=== PATIENT | female | born 1950 | race Caucasian/White ===

== ENCOUNTER 2016-09-18 14:03 | Outpatient (CLI) | payer OTHER, BC | END 2016-09-18 14:04 | disposition home or self-care (01) | DX: Z12.31 Encounter for screening mammogram for malignant neoplasm of breast (principal) ==

== ENCOUNTER 2016-10-22 13:57 | Outpatient (CLI) | payer OTHER, BC ==
--- NOTE | 2016-10-24 14:06 | DEXA Report ---
DEXA SCAN: 10/22/2016 HISTORY: @@ TECHNIQUE: Dual energy x-ray absorptiometry (DXA) was performed on a edulio system. Regions measured are the AP spine, femoral neck, and, if needed, forearm. COMPARISON: None. In accordance with the International Society for Clinical Densitometry (ISCD) guidelines, data from previous exams may be reanalyzed using current recommendations and techniques. This is done to allow a more accurate basis for comparison with the current study. FINDINGS: The data for the lumbar spine is as follows: REGION BMD (g/cm/cm) T-SCORE Z-SCORE L1 0.631 -4.2 -2.0 L2 0.708 -4.1 -2.0 L3 0.760 -3.7 -1.5 L4 0.731 -3.9 -1.8 TOTAL 0.702 -3.9 -1.8 NOTE: All evaluable vertebrae are used for classification. The data for the hip is as follows: REGION BMD (g/cm/cm) T-SCORE Z-SCORE Neck 0.580 -3.3 -1.4 TOTAL 0.582 -3.4 -1.7 NOTE: The femoral neck or total proximal femur, whichever is lowest, is used for classification. * Denotes significant change at the 95% confidence level. Denotes dissimilar scan types or analysis methods. IMPRESSION: THE WHO CLASSIFICATION BASED ON THE INTERNATIONAL REFERENCE STANDARD IS SIGNIFICANT OSTEOPOROSIS. THE FRACTURE RISK IS SIGNIFICANTLY INCREASED. RECOMMENDATION: Patients with diagnosis of osteoporosis or osteopenia should have regular bone mineral density assessment. For those eligible for Medicare, routine testing is allowed once every 2 years. Testing frequency can be increased for patients who have rapidly progressing disease or for those who are receiving medical therapy to restore bone mass. COMMENT: World Health Organization (WHO) definitions for osteoporosis and osteopenia: NORMAL BMD: T-score at -1.0 or higher, fracture risk is low. OSTEOPENIA BMD: T-score between -1.0 and -2.5, fracture risk is increased. OSTEOPOROSIS BMD: T-score at -2.5 or lower, fracture risk high. National Osteoporosis Foundation recommends: 1. Obtain adequate dietary calcium (at least 1200 mg per day) and vitamin D (400 -800 international units per day). 2. Participate, as appropriate, in regular weightbearing and muscle- strengthening exercise. 3. Avoid tobacco use and reduce alcohol and caffeine intake. 4. For more detailed information see the website at www.NOF.org. MTDD
== END 2016-10-22 13:58 | disposition home or self-care (01) ==
LOC: DI 13:57
PROVIDERS: ATTEND Family Medicine
DX: M81.0 Age-related osteoporosis without current pathological fracture (principal)
CPT/HCPCS: 77080

== ENCOUNTER 2017-07-28 13:35 | Emergency (ER) | payer BC ==
--- NOTE | 2017-07-28 16:39 | ED Physician Documentation ---
PD HPI HEADACHE - Stated complaint Stated Complaint: SHARP HEAD PX - Chief complaint Chief Complaint: General - History obtained from History obtained from: Patient PD PAST MEDICAL HISTORY - Present Medications Home Medications: Ambulatory Orders Medication Instructions Recorded Confirmed Atorvastatin [Lipitor] 10 mg ORAL DAILY 07/28/17 07/28/17 Lisinopril 10 mg PO DAILY 07/28/17 07/28/17 - Allergies Allergies/Adverse Reactions: Allergies Allergy/AdvReac Type Severity Reaction Status Date / Time Sulfa (Sulfonamide Allergy Emesis Verified 07/28/17 13:43 Antibiotics) Results - Vitals Vitals: Vital Signs - 24 hr 07/28/17 13:40 Temperature 36.7 C Heart Rate 59 L Respiratory 18 Rate Blood Pressure 150/88 H O2 Saturation 100 Oxygen O2 Source Room air
--- NOTE | 2017-07-28 16:57 | ED Physician Documentation ---
History of Present Illness - Stated complaint Stated Complaint: SHARP HEAD PX - Chief complaint Chief Complaint: General - History obtained from History obtained from: Patient, Family - History of Present Illness Timing: How many days ago (4) - Additonal information Additional information: 66-year-old female otherwise healthy Has developed acute lancinating pain in her scalp about 4 days ago. She has had frequent episodes of brief sharp pain in the left side of the scalp only and she had a lot of this last night repeated episodes and today she has had 4 episodes. She feels this is better today than it was last night. She does not have a rash in her scalp and she denies any significant current stress. Review of Systems Constitutional: denies: Fever Eyes: denies: Decreased vision Ears: denies: Ear pain Nose: denies: Rhinorrhea / runny nose, Congestion Throat: denies: Dental pain / toothache, Oral lesions / sores, Sore throat Cardiac: denies: Chest pain / pressure Respiratory: denies: Dyspnea, Cough GI: denies: Abdominal Pain, Nausea, Vomiting : denies: Dysuria, Frequency Skin: denies: Rash Musculoskeletal: denies: Neck pain, Back pain, Extremity pain Neurologic: reports: Headache (Sharp brief pains). denies: Generalized weakness , Focal weakness, Numbness, Head injury, LOC PD PAST MEDICAL HISTORY - Present Medications Home Medications: Ambulatory Orders Medication Instructions Recorded Confirmed Atorvastatin [Lipitor] 10 mg ORAL DAILY 07/28/17 07/28/17 Lisinopril 10 mg PO DAILY 07/28/17 07/28/17 - Allergies Allergies/Adverse Reactions: Allergies Allergy/AdvReac Type Severity Reaction Status Date / Time Sulfa (Sulfonamide Allergy Emesis Verified 07/28/17 13:43 Antibiotics) PD ED PE NORMAL - Vitals Vital signs reviewed: Yes (Diastolic hypertension) - General General: Alert and oriented X 3, No acute distress, Well developed/nourished - HEENT HEENT: Atraumatic, PERRL, EOMI, Other (There is fine erythema to the scalp on the left side of the parietal region where the patient has been having her symptoms. There are no blisters or open sores.) - Neck Neck: Supple, no meningeal sign, No bony TTP - Respiratory Respiratory: No respiratory distress - Derm Derm: Normal color, Warm and dry, No rash - Extremities Extremities: No deformity, No edema - Neuro Neuro: Alert and oriented X 3, poultry pinner 2-12 intact, No motor deficit, No sensory deficit, Normal speech Eye Opening: Spontaneous Motor: Obeys Commands Verbal: Oriented GCS Score: 15 - Psych Psych: Normal mood, Normal affect Results - Vitals Vitals: Vital Signs - 24 hr 07/28/17 13:40 Temperature 36.7 C Heart Rate 59 L Respiratory 18 Rate Blood Pressure 150/88 H O2 Saturation 100 Oxygen O2 Source Room air PD MEDICAL DECISION MAKING - ED course Complexity details: considered differential, d/w patient, d/w family ED course: 66-year-old female with sharp lancinating pains to her scalp likely has zoster and this does not look like a bad case. She has had a few episodes today these are all brief and are less than what she had last night. I suspect her shingles are resolving and we discussed potential treatment and she does not feel that this will be necessary. I have agreed with the patient and she will be treated conservatively. I considered other etiologies such as subarachnoid hemorrhage or ruptured aneurysm as unlikely given the patient's constellation of symptoms and benign examination. Her symptoms are entirely consistent with shingles and not other etiology. Departure - Departure Disposition: 01 Home, Self Care Clinical Impression: Shingles Qualifiers: Herpes zoster complications: without complications Qualified Code(s): B02.9 - Zoster without complications Condition: Stable Instructions: ED Shingles Follow-Up: Natacha Johnson MD [Primary Care Provider] -
[2017-07-28 17:26] VITALS: BP 144/87
== END 2017-07-28 17:26 | disposition home or self-care (01) ==
LOC: ED 13:35
DX: B02.9 Zoster without complications (principal)
CPT/HCPCS: 99283

== ENCOUNTER 2018-10-05 08:00 | Outpatient (CLI) | payer MEDICARE, BC ==
[2018-10-05 13:29] LABS: ALBUMIN 3.9 g/dL (3.2-5.5); ALBUMIN/GLOBULIN RATIO 1.3 (1.0-2.2); ALKALINE PHOSPHATASE 47 IU/L (42-121); ALT ALANINE AMINOTRANSFERASE 18 IU/L (10-60); AST ASPARTATE AMINOTRANSFERASE 24 IU/L (10-42); BILIRUBIN,TOTAL 0.4 mg/dL (0.2-1.0); BUN - BLOOD UREA NITROGEN 14 mg/dL (6-20); CALCIUM 9.4 mg/dL (8.5-10.3); CARBON DIOXIDE - CO2 27 mmol/L (21-32); CHLORIDE 104 mmol/L (101-111); CHOL/HDL RATIO 2.2 (<4.4); CHOLESTEROL 184 mg/dL; CREATININE 0.8 mg/dL (0.4-1.0); GFR - MDRD 71 (>89); GLUCOSE 94 mg/dL (70-100); HDL CHOLESTEROL 85 mg/dL; LDL CHOLESTEROL,CALCULATED 84 mg/dL; SODIUM 141 mmol/L (135-145); VLDL CHOLESTEROL 15 mg/dL
[2018-10-05 13:31] LABS: BASOPHILS % (AUTO) 0.8 %; EOSINOPHILS # (AUTO) 0.1 10^3/uL (0.0-0.7); EOSINOPHILS % (AUTO) 1.6 %; HGB - HEMOGLOBIN 12.9 g/dL (12.0-16.0); LYMPHOCYTES # (AUTO) 1.4 10^3/uL (1.5-3.5); LYMPHOCYTES % (AUTO) 33.1 %; MEAN CORPUSCULAR HEMOGLOBIN 28.5 pg (27.0-31.0); MEAN CORPUSCULAR HGB CONC 33.2 g/dL (32.0-36.0); MEAN CORPUSCULAR VOLUME 85.8 fL (81.0-99.0); MEAN PLATELET VOLUME 9.2 fL (7.9-10.8); MONOCYTES # (AUTO) 0.4 10^3/uL (0.0-1.0); NEUTROPHILS # (AUTO) 2.4 10^3/uL (1.5-6.6); NEUTROPHILS % (AUTO) 55.5 %; PLT - PLATELET COUNT 204 10^3/uL (130-450); RED BLOOD COUNT 4.54 10^6/uL (4.20-5.40); RED CELL DISTRIBUTION WIDTH 12.8 % (12.0-15.0); WHITE BLOOD COUNT 4.3 x10^3/uL (4.8-10.8)
== END 2018-10-05 23:59 | disposition home or self-care (01) ==
LOC: LAB.WCP 08:00
PROVIDERS: ATTEND Family Medicine
DX: E78.5 Hyperlipidemia, unspecified (principal); I10 Essential (primary) hypertension
CPT/HCPCS: 36415; 80053; 80061; 83721; 85025

== ENCOUNTER 2018-11-16 12:02 | Outpatient (CLI) | payer MEDICARE, BC ==
--- NOTE | 2018-11-17 08:51 | Mammography Report ---
Reason: SCREENING MAMMO Procedure Date: 11/16/2018 Accession Number: [id number] / [id number] Procedure: SARAH - Screening Mammo w/Ryan CPT Code: FULL RESULT: EXAM: Screening Mammo w/Ryan DATE: 11/16/2018 12:35 PM CLINICAL HISTORY: Screening encounter. History of late childbearing. TECHNIQUE: (B) - Bilateral CC and MLO views were obtained. A right laterally exaggerated CC views obtained. COMPARISON: 09/18/2016 through 03/16/2011. PARENCHYMAL PATTERN: (D) - The breast(s) demonstrate(s) heterogeneously dense fibroglandular parenchyma. FINDINGS: There are coarse typically benign calcifications. There are no suspicious masses, calcifications, or areas of distortion. IMPRESSION: Benign findings. BI-RADS category 2. RECOMMENDATION: (ANNUAL) - Recommend routine annual screening mammography. BI-RADS CATEGORY: (2) - Benign Findings. STANDARD QUALIFYING STATEMENTS: 1. This examination was not reviewed with the aid of Computer-Aided Detection (CAD). 2. A negative or benign imaging report should not preclude biopsy if clinically suspicious findings are present. 3. Dense breasts may obscure an underlying neoplasm. 4. This examination was reviewed with the aid of 3D breast imaging (tomosynthesis).
== END 2018-11-16 12:03 | disposition home or self-care (01) ==
LOC: DI 12:02
DX: Z12.31 Encounter for screening mammogram for malignant neoplasm of breast (principal)
CPT/HCPCS: 77063; 77067

== ENCOUNTER 2019-01-03 22:50 | Emergency (ER) | payer MEDICARE, BC ==
[2019-01-03] MEDS ORDERED: IBUPROFEN 800 MG TABLET PO STA (23:18)
--- NOTE | 2019-01-03 23:24 | XRAY Report ---
Reason: injury/fall Procedure Date: 01/03/2019 Accession Number: [id number] / [id number] Procedure: XR - Ankle 3 View LT CPT Code: FULL RESULT: EXAM: LEFT ANKLE RADIOGRAPHY EXAM DATE: 01/03/2019 11:18 PM. CLINICAL HISTORY: Injury/fall. COMPARISON: None. TECHNIQUE: 3 views. FINDINGS: Bones: Normal. No fractures or bone lesions. Joints: Normal. No effusion. No subluxations. The ankle mortise is normally aligned. Soft Tissues: Normal. No soft tissue swelling. IMPRESSION: Normal ankle radiography. RADIA
--- NOTE | 2019-01-03 23:47 | ED Physician Documentation ---
PD HPI LOWER EXT INJURY - Stated complaint Stated Complaint: L ANKLE PX - Chief complaint Chief Complaint: Trauma Ext - History obtained from History obtained from: Patient - History of Present Illness PD HPI LOW EXT INJURY LOCATION: Left, Ankle Type of injury: Twist Where injury occurred: Home Timing - onset: How many hours ago (7) Worsened by: Other (Weightbearing) Associated symptoms: Swelling Similar symptoms before: Has not had sx before - Additional information Additional information: The patient is a 68-year-old female who twisted her left ankle when stepping down into the garage about 7 hours prior to arrival. She presents now with pain in her left ankle, stating that she is unable to bear weight. She denies any other injuries. She denies history of similar injury in the past. Review of Systems Constitutional: denies: Fever Respiratory: denies: Dyspnea Skin: denies: Lesions Musculoskeletal: reports: Joint pain (Left ankle.), Joint swelling (Left ankle.). denies: Back pain Neurologic: denies: Focal weakness, Numbness PD PAST MEDICAL HISTORY - Past Medical History Past Medical History: Yes Cardiovascular: Hypertension, High cholesterol Musculoskeletal: Osteoporosis - Past Surgical History Past Surgical History: Yes General: Appendectomy - Present Medications Home Medications: Ambulatory Orders Medication Instructions Recorded Confirmed Atorvastatin [Lipitor] 10 mg ORAL DAILY 07/28/17 01/03/19 Lisinopril 10 mg PO DAILY 07/28/17 01/03/19 - Allergies Allergies/Adverse Reactions: Allergies Allergy/AdvReac Type Severity Reaction Status Date / Time Sulfa (Sulfonamide Allergy Emesis Verified 01/03/19 22:56 Antibiotics) - Social History Does the pt smoke?: No Smoking Status: Never smoker Does the pt drink ETOH?: No Does the pt have substance abuse?: No - Immunizations Immunizations are current?: Yes - POLST Patient has POLST: No PD ED PE NORMAL - Vitals Vital signs reviewed: Yes (Systolic hypertension initially.) - General General: Alert and oriented X 3, Well developed/nourished - HEENT HEENT: Atraumatic - Respiratory Respiratory: No respiratory distress - Derm Derm: No rash - Extremities Extremities: No calf tenderness / cord, Other (There is mild swelling, with associated tenderness to palpation at the anterior aspect of the lateral malleolus of the left ankle. There is no tenderness to palpation at the posterior aspect of the lateral malleolus, the medial mall or the proximal fibula. There is mild tenderness over the fifth metatarsal base.) - Neuro Neuro: Alert and oriented X 3, No motor deficit, No sensory deficit Results - Vitals Vitals: Vital Signs - 24 hr 01/03/19 22:52 Temperature 37.2 C Heart Rate 74 Respiratory 14 Rate Blood Pressure 165/11 H O2 Saturation 100 Oxygen O2 Source Room air - Rads (name of study) Left ankle Radiology: Prelim report reviewed, EMP read contemporaneously, See rad report (Normal ankle radiography.) PD MEDICAL DECISION MAKING - ED course Complexity details: reviewed results, re-evaluated patient, considered differential, d/w patient, d/w family ED course: The patient's presentation is most consistent with a left ankle sprain. X-ray of the left ankle reveals no evidence of bony abnormality. Treatment in the emergency department included administration of ibuprofen 800 mg orally. An ankle air splint was applied and crutches were dispensed. I discussed with her and her the expected course of injury, symptomatic treatment and outpatient follow-up, as well as potentially worrisome signs or symptoms that should prompt reevaluation in the emergency department. Departure - Departure Disposition: 01 Home, Self Care Clinical Impression: Left ankle sprain Qualifiers: Encounter type: initial encounter Involved ligament of ankle: anterior talofibular ligament Qualified Code(s): S93.492A - Sprain of other ligament of left ankle, initial encounter Condition: Stable Instructions: ED Sprain Ankle W X Ray Follow-Up: Natacha Johnson MD [Provider Admit Priv/Credential] - Comments: Keep your left leg elevated as much of the time as possible. Apply ice pack intermittently for the next 3 or 4 days. You can use ibuprofen, up to 800 mg 3 times daily if needed for pain or discomfort. Use the air splint as long as it is helpful. Let pain be your guide to activity level. Follow-up with your primary physician within 2 weeks. Call to schedule an appointment. Return to the emergency department if you develop markedly increasing pain, or otherwise worsening symptoms.
[2019-01-04 00:08] VITALS: BP 108/92
== END 2019-01-04 | disposition home or self-care (01) ==
LOC: ED 22:50
DX: S93.492A Sprain of other ligament of left ankle, initial encounter (principal); X50.1XXA Overexertion from prolonged static or awkward postures, initial encounter; Y92.015 Private garage of single-family (private) house as the place of occurrence of the external cause; I10 Essential (primary) hypertension
CPT/HCPCS: 73610; 99282; 99283; A9270

== ENCOUNTER 2019-03-04 10:37 | Outpatient (CLI) | payer MEDICARE, BC | END 2019-03-04 10:38 | disposition home or self-care (01) | LOC: RT 10:37 | PROVIDERS: ATTEND Internal Medicine Gastroenterology | DX: I10 Essential (primary) hypertension (principal); E78.5 Hyperlipidemia, unspecified | CPT/HCPCS: 93005 ==

== ENCOUNTER 2019-03-30 06:58 | Day surgery (SDC) | payer MEDICARE, BC ==
[2019-03-30] MEDS ORDERED: LACTATED RINGERS 1,000 ML IV ONE (07:07)
[2019-03-30] MEDS ORDERED: ONDANSETRON 4 MG/2 ML VIAL ONE (07:54)
[2019-03-30] MEDS ORDERED: MIDAZOLAM 2 MG/2 ML VIAL IVP ONE (08:37)
[2019-03-30] MEDS ORDERED: fentaNYL 100 MCG/2 ML VIAL IVP ONE (08:37)
[2019-03-30 09:49] VITALS: BP 118/69
== END 2019-03-30 06:59 | disposition home or self-care (01) ==
LOC: SDS 06:58
PROVIDERS: ATTEND Internal Medicine Gastroenterology
PROC: 0DJD8ZZ Inspection of Lower Intestinal Tract, Via Natural or Artificial Opening Endoscopic (ICD-10-PCS; principal; 2019-03-30 08:30)
DX: Z12.11 Encounter for screening for malignant neoplasm of colon (principal); K57.30 Diverticulosis of large intestine without perforation or abscess without bleeding; I10 Essential (primary) hypertension; Z86.010 Personal history of colon polyps; Z79.899 Other long term (current) drug therapy
CPT/HCPCS: G0105; J7120

== ENCOUNTER 2020-06-29 14:42 | Outpatient (CLI) | payer MEDICARE, BC ==
--- NOTE | 2020-06-29 16:12 | DEXA Report ---
PROCEDURE: Dexa Spine and/or Hip INDICATIONS: MENOPAUSE TECHNIQUE: Dual energy x-ray absorptiometry (DXA) was performed on a amiando System. Regions measur ed are the AP Spine, femoral neck, and if needed forearm. COMPARISON: None. FINDINGS: Lumbar Spine: Bone Mineral Density 0.787 g/cm/cm,T score -3.3, compared to -3.9 Left Hip: Bone Mineral Density 0.569 g/cm/cm,T score -3.5, compared to -3.4 Left Femoral Neck: Bone Mineral Density 0.581 g/cm/cm, T score -3.3, compared to -3.3 (T score greater or equal to -1.0: NORMAL) (T score from -1.1 to -2.4: OSTEOPENIA) (T score less than or equal to -2.5 to: OSTEOPOROSIS) Impression: Osteoporosis within the spine as well as hip and femoral neck with mild improvement noted within the spine. Remaining areas remain relatively stable with very minimal interval progression of the left hip. Patients with diagnosis of osteoporosis or osteopenia should have regular bone mineral density assess ment. For those eligible for Medicare, routine testing is allowed once every 2 years. Testing frequ ency can be increased for patients who have rapidly progressing disease or for those who are receivin g medical therapy to restore bone mass. Reviewed by: Melissa Adam MD on 06/29/2020 4:11 PM PST Approved by: Melissa Adam MD on 06/29/2020 4:11 PM PST Station ID: [id number]
== END 2020-06-29 14:43 | disposition home or self-care (01) ==
LOC: DI 14:42
PROVIDERS: ATTEND Nurse Practitioner
DX: M81.0 Age-related osteoporosis without current pathological fracture (principal); Z78.0 Asymptomatic menopausal state

== ENCOUNTER 2020-07-12 15:37 | Outpatient (CLI) | payer MEDICARE, BC ==
--- NOTE | 2020-07-13 09:33 | Mammography Report ---
BILATERAL DIGITAL SCREENING MAMMOGRAM 3D/2D: 07/12/2020 CLINICAL: Routine screening. Comparison is made to exams dated: 11/16/2018 mammogram, 09/18/2016 mammogram, 03/10/2014 mammogram, mammogram, 03/16/2011 mammogram, and 08/06/2010 mammogram - [facility]. The tissue of both breasts is predominantly fatty. There are benign calcifications in both breasts. No significant masses, calcifications, or other findings are seen in either breast. There has been no significant interval change. IMPRESSION: BENIGN There is no mammographic evidence of malignancy. A 1 year screening mammogram is recommended. This exam was interpreted at Station ID: [id number]. NOTE: For mammograms, a report in lay terms will be sent to the patient. Approximately 15% of breast malignancies will not be visualized mammographically. In the management of a palpable breast mass, a negative mammogram must not discourage biopsy of a clinically suspicious lesion. Electronically Signed By: Jas Piña acr/penrad:07/12/2020 16:31:31 ACR BI-RADS Category 2: Benign Finding(s) 3342F PARENCHYMAL PATTERN: (F) - The breast(s) demonstrate(s) diffuse fatty replacement. BI-RADS CATEGORY: (2) - 2 RECOMMENDATION: (ANNUAL) - Recommend routine annual screening mammography. [id number] 1 year screening LATERALITY: (B)
== END 2020-07-12 15:38 | disposition home or self-care (01) ==
LOC: DI.N 15:37
PROVIDERS: ATTEND Nurse Practitioner
DX: Z12.31 Encounter for screening mammogram for malignant neoplasm of breast (principal)

== ENCOUNTER 2022-05-08 09:17 | Outpatient (CLI) | payer MEDICARE, BC ==
--- NOTE | 2022-05-09 09:48 | Mammography Report ---
BILATERAL DIGITAL SCREENING MAMMOGRAM 3D/2D: 05/08/2022 CLINICAL: Routine screening. Comparison is made to exams dated: 07/12/2020 mammogram, 11/16/2018 mammogram, 09/18/2016 mammogram, mammogram, 12/17/2012 mammogram, and 03/16/2011 mammogram - [facility]. Both breasts are heterogeneously dense, which may obscure small masses (category c / 51-75% glandular tissue). There are benign calcifications in both breasts. No significant masses, calcifications, or other findings are seen in either breast. There has been no significant interval change. IMPRESSION: BENIGN There is no mammographic evidence of malignancy. A 1 year screening mammogram is recommended. Based on the Tyrer Cuzick model (a risk assessment model) the patients lifetime risk is 5.6% and her 10 year risk is 4.2%. According to the ACR, ACS, and NCCN guidelines, an annual breast MRI exam navdeep g with mammogram is recommended if the patients lifetime risk is 20% or greater. This exam was interpreted at Station ID: [id number]. NOTE: For mammograms, a report in lay terms will be sent to the patient. Approximately 15% of breast malignancies will not be visualized mammographically. In the management of a palpable breast mass, a negative mammogram must not discourage biopsy of a clinically suspicious lesion. Electronically Signed By: Ashlyn ng/karlosrad:05/08/2022 14:39:59 ACR BI-RADS Category 2: Benign Finding(s) 3342F PARENCHYMAL PATTERN: (D) - The breast(s) demonstrate(s) heterogeneously dense fibroglandular parjuan ry ma. BI-RADS CATEGORY: (2) - 2 RECOMMENDATION: (ANNUAL) - Recommend routine annual screening mammography. [id number] 1 year screening LATERALITY: (B)
== END 2022-05-08 09:18 | disposition home or self-care (01) ==
LOC: DI.N 09:17
DX: Z12.31 Encounter for screening mammogram for malignant neoplasm of breast (principal)

== ENCOUNTER 2023-05-21 11:32 | Outpatient (CLI) | payer MEDICARE, BC ==
--- NOTE | 2023-05-22 08:24 | Mammography Report ---
BILATERAL DIGITAL SCREENING MAMMOGRAM 3D/2D: 05/21/2023 CLINICAL: Routine screening. Comparison is made to exams dated: 05/08/2022 mammogram, 07/12/2020 mammogram, 11/16/2018 mammogram, mammogram, 03/10/2014 mammogram, and 12/17/2012 mammogram - [facility]. Both breasts are heterogeneously dense, which may obscure small masses (category c / 51-75% glandular tissue). There are benign calcifications in both breasts. No significant masses, calcifications, or other findings are seen in either breast. There has been no significant interval change. IMPRESSION: BENIGN There is no mammographic evidence of malignancy. A 1 year screening mammogram is recommended. Based on the Tyrer Cuzick model (a risk assessment model) the patients lifetime risk is 5.3% and her 10 year risk is 4.3%. According to the ACR, ACS, and NCCN guidelines, an annual breast MRI exam navdeep g with mammogram is recommended if the patients lifetime risk is 20% or greater. This exam was interpreted at Station ID: [id number]. NOTE: For mammograms, a report in lay terms will be sent to the patient. Approximately 15% of breast malignancies will not be visualized mammographically. In the management of a palpable breast mass, a negative mammogram must not discourage biopsy of a clinically suspicious lesion. Electronically Signed By: Ashlyn ng/dano:05/21/2023 17:39:13 letter sent: No_Letter ACR BI-RADS Category 2: Benign Finding(s) 3342F PARENCHYMAL PATTERN: (D) - The breast(s) demonstrate(s) heterogeneously dense fibroglandular sabra kumari. BI-RADS CATEGORY: (2) - 2 Mammogram [id number] 1 year screening LATERALITY: (B)
== END 2023-05-21 11:33 | disposition home or self-care (01) ==
LOC: DI.N 11:32
DX: Z12.31 Encounter for screening mammogram for malignant neoplasm of breast (principal); R92.333 Mammographic heterogeneous density, bilateral breasts; R92.1 Mammographic calcification found on diagnostic imaging of breast

== ENCOUNTER 2023-12-09 08:17 | Outpatient (CLI) | payer MEDICARE, BC ==
[2023-12-09 08:27] LABS: EOSINOPHILS # (AUTO) 0.1 10^3/uL (0.0-0.7); EOSINOPHILS % (AUTO) 2.3 %; HCT - HEMATOCRIT 39.6 % (37.0-47.0); HGB - HEMOGLOBIN 12.9 g/dL (12.0-16.0); LYMPHOCYTES # (AUTO) 1.6 10^3/uL (1.5-3.5); LYMPHOCYTES % (AUTO) 42.1 %; MEAN CORPUSCULAR HEMOGLOBIN 28.9 pg (27.0-31.0); MEAN CORPUSCULAR HGB CONC 32.6 g/dL (32.0-36.0); MEAN CORPUSCULAR VOLUME 88.8 fL (81.0-99.0); MEAN PLATELET VOLUME 10.1 fL (7.9-10.8); MONOCYTES # (AUTO) 0.4 10^3/uL (0.0-1.0); MONOCYTES % (AUTO) 10.1 %; NEUTROPHILS # (AUTO) 1.7 10^3/uL (1.5-6.6); NEUTROPHILS % (AUTO) 44.2 %; PLT - PLATELET COUNT 184 10^3/uL (130-450); RED BLOOD COUNT 4.46 10^6/uL (4.20-5.40); RED CELL DISTRIBUTION WIDTH 12.7 % (12.0-15.0); WHITE BLOOD COUNT 3.9 x10^3/uL (4.8-10.8)
[2023-12-09 08:44] LABS: ALBUMIN 4.1 g/dL (3.2-5.5); ALBUMIN/GLOBULIN RATIO 1.6 (1.0-2.2); ALKALINE PHOSPHATASE 61 IU/L (42-121); ALT ALANINE AMINOTRANSFERASE 21 IU/L (10-60); AST ASPARTATE AMINOTRANSFERASE 20 IU/L (10-42); BILIRUBIN,TOTAL 0.6 mg/dL (0.2-1.0); BUN - BLOOD UREA NITROGEN 14 mg/dL (6-20); CALCIUM 9.5 mg/dL (8.5-10.3); CARBON DIOXIDE - CO2 28 mmol/L (21-32); CHLORIDE 107 mmol/L (101-111); CHOL/HDL RATIO 2.4 (<4.4); CHOLESTEROL 199 mg/dL; CREATININE 0.9 mg/dL (0.6-1.3); GFR - MDRD 61 (>89); GLUCOSE 87 mg/dL (74-104); HDL CHOLESTEROL 83 mg/dL; LDL CHOLESTEROL,CALCULATED 99 mg/dL; LDL/HDL RATIO 1.2 (<4.4); POTASSIUM 3.8 mmol/L (3.5-4.5); SODIUM 140 mmol/L (135-145); TOTAL PROTEIN 6.7 g/dL (6.4-8.9); TRIGLYCERIDES 85 mg/dL; VLDL CHOLESTEROL 17 mg/dL
[2023-12-09 08:57] LABS: THYROID STIMULATING HORMONE 1.57 uIU/mL (0.34-5.60)
== END 2023-12-09 08:18 | disposition home or self-care (01) ==
LOC: LAB 08:17
PROVIDERS: ATTEND Physician Assistant
DX: I10 Essential (primary) hypertension (principal); E78.5 Hyperlipidemia, unspecified
CPT/HCPCS: 36415; 80053; 80061; 83721; 84443; 85025

== ENCOUNTER 2024-02-03 13:38 | Outpatient (CLI) | payer MEDICARE, BC ==
--- NOTE | 2024-02-04 09:39 | DEXA Report ---
PROCEDURE: Dexa Spine and/or Hip INDICATIONS: OSTEOPOROSIS TECHNIQUE: Dual energy x-ray absorptiometry (DXA) was performed on a Picatic System. Regions measur ed are the AP Spine, femoral neck, and if needed forearm. COMPARISON: 06/29/2020, 10/22/2016 FINDINGS: Lumbar Spine: Bone Mineral Density: 0.767 g/cm/cm,T score: -3.4. Since the most recent prior study, there has been a statistically significant decrease in bone mineral density by -2.5 percent. Left Femoral Neck: Bone Mineral Density: 0.545 g/cm/cm, T score: -3.5. Left Hip: Bone Mineral Density: 0.533 g/cm/cm,T score: -3.8. Since the most recent prior study, there has been a statistically significant decrease in bone mineral density by -6.3 percent. FRAX risk factors: None given. Not reported due to osteoporosis. Impression: By WHO criteria, this patient has osteoporosis. Interval statistical decrease in bone mineral density of the lumbar spine. Interval statistical decre ase in bone mineral density of the hip. Patients with diagnosis of osteoporosis or osteopenia should have regular bone mineral density assess ment. For those eligible for Medicare, routine testing is allowed once every 2 years. Testing frequ ency can be increased for patients who have rapidly progressing disease or for those who are receivin g medical therapy to restore bone mass. Reviewed by: Agustin Loza MD on 02/04/2024 9:38 AM PDT Approved by: Agustin Loza MD on 02/04/2024 9:38 AM PDT Station ID: [id number]
== END 2024-02-03 13:39 | disposition home or self-care (01) ==
LOC: DI 13:38
PROVIDERS: ATTEND Physician Assistant
DX: M81.0 Age-related osteoporosis without current pathological fracture (principal)